=== PATIENT | male | born 1975 | race Caucasian/White ===

== ENCOUNTER 2016-10-11 15:47 | Emergency (ER) | payer OTHER ==
[2016-10-11] MEDS ORDERED: IBUPROFEN 600 MG TABLET (FP) PO ONE ×2 (16:04→16:16)
[2016-10-11 16:17] VITALS: TEMP 98.1; BMI 34.9
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
[2016-10-11 16:44] VITALS: BP 123/70; PULSE 76
== END 2016-10-11 16:44 | disposition home or self-care (01) ==
LOC: JER 15:47
DX: S29.012A Strain of muscle and tendon of back wall of thorax, initial encounter (principal); X50.0XXA Overexertion from strenuous movement or load, initial encounter; X50.9XXA Other and unspecified overexertion or strenuous movements or postures, initial encounter; Y93.89 Activity, other specified; Y92.61 Building [any] under construction as the place of occurrence of the external cause; Y99.0 Civilian activity done for income or pay
CPT/HCPCS: 99282-25

== ENCOUNTER 2018-04-29 11:24 | Emergency (ER) | payer OTHER ==
[2018-04-29 11:40] VITALS: BP 127/74; PULSE 68; TEMP 98.1; BMI 32.5
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
[2018-04-29] MEDS ORDERED: IBUPROFEN 400 MG TABLET (FP) PO ONE ×2 (12:55→12:56)
== END 2018-04-29 13:02 | disposition home or self-care (01) ==
LOC: JERFT 11:24
DX: S46.912A Strain of unspecified muscle, fascia and tendon at shoulder and upper arm level, left arm, initial encounter (principal); M54.9 Dorsalgia, unspecified; X58.XXXA Exposure to other specified factors, initial encounter; Y93.89 Activity, other specified; Y92.89 Other specified places as the place of occurrence of the external cause; Y99.0 Civilian activity done for income or pay
CPT/HCPCS: 99281-25

== ENCOUNTER 2018-07-30 06:22 | Day surgery (SDC) | payer BC, OTHER ==
[2018-07-29 15:17] VITALS: BMI 33.1
--- NOTE | 2018-07-29 18:52 | PREOP ---
DATE OF ADMISSION: 07/30/2018 ADMISSION DIAGNOSIS: Nasal septal deviation, inferior turbinate hypertrophy, chronic pansinusitis. HISTORY OF PRESENT ILLNESS: This 43-year-old male has had longstanding nasal and sinus symptoms. He has had significant symptoms of obstruction, thick nasal drainage both anterior and posterior as well as purulent, history of sinus infections and sinus pressure. There is also a reduced sense of smell. He has had his obstructive symptoms for many years. He also has nasal allergies. He has been treated with antibiotics as well as sprays without improvement. He has been found to have significant nasal polyps particularly on the left side and chronic sinusitis found on his CT scan. He is now admitted for endoscopic sinus surgery to address ethmoid, maxillary, sphenoid, and frontal sinuses as well as address deviation of the nasal septum and inferior turbinate hypertrophy. ALLERGIES: No allergies to medications. PRESENT MEDICATIONS: Include fluticasone nasal spray. SOCIAL HISTORY: The patient does not smoke. PAST SURGICAL HISTORY: He has had in the past arthroscopic nasal surgery and ACL reconstruction. PAST MEDICAL HISTORY: He has undergone general anesthesia without report of problems. Bleeding history is negative. FAMILY HISTORY: Family history is negative for bleeding or anesthesia problems. PHYSICAL EXAMINATION: General: The patient is a well-developed male in no acute distress. HEENT: Head is normal. Eyes are clear. Ears are unremarkable. The nose has deviation of the septum as well as turbinate hypertrophy. Significant nasal polyposis is seen on the left side. The remainder of his head and neck examination is unremarkable. DATA: Preoperative labs are pending. CT scan of the paranasal sinuses performed at [facility] on June 06, 2018 does show chronic pansinusitis. The maxillary sinuses have prominent mucosal thickening and inflammatory debris right greater than left. There is opacification of the right ostial meatal unit. Ethmoid sinuses have mucosal thickening and inflammatory debris right greater than left. The sphenoid sinuses have mucosal thickening and a possible small retention cyst. Sphenoid ethmoid recesses are opacified by mucosal thickening bilaterally. Frontal sinuses show mild polypoid mucosal thickened on the floor of both sinuses. There is prominent leftward deviation of the nasal septum, which narrows the left nasal cavity. There is also evidence of left nasal polyposis. IMPRESSION: 1. Chronic pansinusitis. 2. Nasal septal deviation with obstruction. 3. Inferior turbinate hypertrophy. 4. Left nasal polyps. PLAN: Endoscopic sinus surgery, nasal septoplasty, possible turbinate surgery with image guidance. Informed consent: The patient understands the indications, alternatives, nature, risks, and benefits of proposed surgery, potential complications including, but not limited to, anesthesia, bleeding, infection, recurrence, hole in the septum, change in the sense of smell, numbness, eye injury or brain injury were discussed in detail. He understands and accepts these risks and wish to proceed with surgery. Questions are answered fully. RACHAEL FLOYD M.D. [id number]
[2018-07-30] MEDS ORDERED: MIDAZOLAM HCL 2 MG/2 ML SINGLE DOSE VIAL ONE (07:32)
[2018-07-30] MEDS ORDERED: LIDOCAINE HCL 1%, 10 MG/ML (20ML VIAL) ONE (07:47)
--- NOTE | 2018-07-30 08:00 | HP ---
History & Physical Update - History History: No Change - Physical Physical: No Change - Assessment Assessment: No Change - Plan Plan: No Change
[2018-07-30] MEDS ORDERED: PROPOFOL 20 ML ONE ×4 (08:15)
[2018-07-30] MEDS ORDERED: SUCCINYLCHOLINE CHLORIDE 200 MG/10 ML VIAL ONE (08:16)
[2018-07-30] MEDS ORDERED: fentaNYL CITRATE 250 MCG/5 ML VIAL ONE (08:17)
[2018-07-30] MEDS ORDERED: COCAINE HCL 4% TOPICAL SOLUTION 4 ML BOTTLE TP ONE ×2 (08:21→08:41)
[2018-07-30] MEDS ORDERED: LIDOCAINE 1%-EPI 1:100,000 30 ML MDV IJ ONE (08:24)
[2018-07-30] MEDS ORDERED: LIDOCAINE 1%/EPI 1:100000 (20 ML MULTI DOSE VIAL) IJ ONE ×2 (08:40)
[2018-07-30] MEDS ORDERED: KETOROLAC TROMETHAMINE 30 MG/1 ML VIAL ONE (09:39)
[2018-07-30] MEDS ORDERED: DEXAMETHASONE SOD PHOSPHATE 4 MG/1 ML VIAL ONE (09:39)
[2018-07-30] MEDS ORDERED: BACITRACIN 15 GM TUBE TOPICAL OINTMENT ONE (10:02)
--- NOTE | 2018-07-30 10:30 | OP ---
Operative Note - Note: Operative Date: 07/30/18 ([id number]) Pre-Operative Diagnosis: chronic pansinusitis, left nasal polyps, deviated septum, inferior turbinate hypertrophy Operation: bilateral endoscopic: 1) ethmoidectomy, anterior and posterior, 2) maxillary antrostomy with removal of tissue, 3) frontal sinus exploration, 4) sphenoidotomy, nasal septoplasty, left inferior turbinate outfracture, right inferior turbinate submucus resection, lysis synechia right nasal cavity, image guidance Findings: chronic sinusitis, large left nasal polyps, obstruction of sinus outflow tracts , deviated septum to left bony and cartilaginous, inferior turbinate hypertrophy right greater than left, right inferior synechia (inferior turbinate to septum) Implants: none Post-Operative Diagnosis: Same as Pre-op Surgeon: Joe Pryor Anesthesiologist/CLINICAL UNIT EDUCATOR: Joe Lowery Anesthesia: General Specimens Removed: left nasal polyp and ethmoid tissue, right ethmoid tissue, right inferior turbinate, nasal septal tissue Estimated Blood Loss (mls): 30 Drains & Tubes with Location: none Blood Volume Replaced (mls): 0 Operative Report Dictated: Yes
[2018-07-30] MEDS ORDERED: oxyCODONE HCL 5 MG TABLET PO PRN ×2 (10:31→10:38)
[2018-07-30] MEDS ORDERED: ACETAMINOPHEN 325 MG TABLET (FP) PO PRN (10:31)
[2018-07-30] MEDS ORDERED: ACETAMINOPHEN INJECTION 100 ML IVPB ONE (10:35)
[2018-07-30] MEDS ORDERED: PROMETHAZINE HCL 25 MG/1 ML VIAL IVPUSH PRN (10:38)
[2018-07-30] MEDS ORDERED: ONDANSETRON 4 MG/2 ML VIAL IVPUSH PRN (10:38)
[2018-07-30] MEDS ORDERED: ACETAMINOPHEN 1000 MG/100 ML VIAL (NON FORMULARY) IVPB ONE (10:38)
[2018-07-30] MEDS ORDERED: LACTATED RINGERS SOLUTION 1,000 ML IV SCH (10:45)
[2018-07-30 17:50] VITALS: TEMP 97.2
[2018-07-30 17:58] VITALS: BP 128/53; PULSE 60
--- NOTE | 2018-07-31 15:22 | OP ---
DATE OF OPERATION: 07/30/2018 PREOPERATIVE DIAGNOSES: Chronic pansinusitis, left nasal polyp with obstruction, nasal septal deviation, inferior turbinate hypertrophy. POSTOPERATIVE DIAGNOSES: Chronic pansinusitis, left nasal polyp with obstruction, nasal septal deviation, inferior turbinate hypertrophy. PROCEDURE: Bilateral endoscopic ethmoidectomy, anterior and posterior, bilateral endoscopic maxillary antrostomy with removal of tissue, bilateral endoscopic frontal sinus exploration, bilateral endoscopic sphenoidotomy, nasal septoplasty, left inferior turbinate outfracture, submucous resection of right inferior turbinate, lysis of synechia, right nasal cavity, endoscopic and image guidance. SURGEON: Rachael Pryor MD ANESTHESIOLOGIST: Rachael Lowery MD ANESTHESIA: General via endotracheal tube. INDICATIONS: This 43-year-old male has had significant nasal obstruction with poor sense of smell, facial pain and pressure and drainage. He has failed to improve with appropriate medical therapy. Examination demonstrates significant deviation of the septum to the left with obstruction, large left nasal polyp obstructing the left nasal cavity posteriorly and entering the nasopharynx as well as inferior turbinate hypertrophy. A CT scan demonstrates chronic pansinusitis and confirms deviation of the septum and the inferior turbinates and the obstruction with the nasal polyp. He is now brought to surgery for treatment. FINDINGS: Chronic pansinusitis, large left nasal polyp obstructing the left nasal cavity and posterior choana, bilateral inferior turbinate hypertrophy, synechia of inferior nasal cavity from the inferior turbinate to the nasal septum, moderate septal deviation to the left bony and cartilaginous with displaced maxillary crest to the right inferiorly contributing to the synechia. PROCEDURE: Patient was brought to the operating room and placed on the operating table in the supine position. General endotracheal anesthesia was induced to a satisfactory level. He was prepped and draped in the usual fashion for surgery. Lidocaine 1% with epinephrine 1:100,000 was infiltrated in the nasal septum. Cocaine 4% on pledgets was placed topically within the nasal cavities. The patient's CT scan data was loaded to the [employer] image-guidance system. The patient was registered and image guidance was used intermittently throughout the case in order to confirm anatomic location and guide dissection. The pledgets were removed and nasal endoscopy was performed. The nasal septum was intact but deviated primarily to the left side with moderate narrowing of the nasal cavity. There was also inferior turbinate hypertrophy. There was a very large nasal polyp posteriorly on the left which obstructed the posterior choana and the inferior meatus and sphenoethmoid recess. On the right side the nasopharynx was observed, but the polyp could be seen entering the left nasopharynx. There was also a dense synechia from the right inferior turbinate to the inferior nasal septum. Additional lidocaine with epinephrine was infiltrated into the middle turbinates and lateral nasal anglin. Nasal polyp was also infiltrated as well as the synechia. Additional cocaine was placed in the middle meati. The synechia was cauterized and then divided endoscopically. Next, the left nasal polyps were grasped with forceps and removed in several pieces. The largest was approximately 2 cm in diameter. This restored the nasal airway. The left paranasal sinus was first addressed. The middle turbinate was slightly medialized. The ball-tipped seeker was used to remove the uncinate process and the uncinate process was removed. An accessory ostium was also identified. Anterior and then posterior ethmoidectomy was performed with the ethmoid forceps and Xomed microdebrider with guidance. Anterior and then posterior ethmoidectomy was performed. The lamina papyracea and the fovea ethmoidalis were preserved. Next, the sphenoid was explored and the sphenoethmoid recess opened. Sphenoidotomy was enlarged. Next, the middle meatal antrostomy was created and tissue was removed to ensure adequate drainage. Finally the 70-degree scope was used to explore the frontal recess. Giraffe forceps were used to remove obstructing tissue. The frontal ostium was identified and location confirmed with guidance. Attention was then turned to the right paranasal sinuses. The middle turbinate was slightly medialized. The uncinate process was drawn forward with a ball-tipped seeker and then removed. Anterior and then posterior ethmoidectomy was performed with the ethmoid forceps and the Xomed microdebrider with guidance. Again the lamina papyracea and the fovea ethmoidalis were preserved. Sphenoidotomy was created and the sinus appeared without lesion. Next, the right maxillary sinus was entered by creating middle meatal antrostomy, enlarging the natural ostium. Next, the right frontal recess was explored using the 70-degree scope and giraffe forceps and curved suction. The frontal ostium was identified and again confirmed with guidance. Finally, attention was turned toward the nasal airway. The nasal septum had deviation to the left including a caudal deviation. A right nasal septal incision was created. Mucoperichondrial flap was elevated and the bony/cartilaginous junction was then identified and and bilateral mucoperiosteal flaps were elevated. Obstructing and deviated bony septum was then removed with the Allan-Kenia instrument. Inferior strip of cartilage excised with the cartilage knife and the [place] elevator. A portion of the maxillary crest was deviated to the right and this was fractured to a more midline position. Scoring incisions were created to break the bend. Caudal and dorsal struts were preserved. After these maneuvers significant improvement in the nasal airway was obtained. The incision was closed with 4-0 chromic. Finally the inferior turbinates were addressed. The right middle turbinate was enlarged and infiltrated with lidocaine and epinephrine. Submucous resection was performed. Submucosal cauterization was performed and incision was closed with 4-0 chromic. Finally the left inferior turbinate was outfractured and excellent airway resulted. Final examination demonstrated open sinuses and excellent hemostasis. NasoPore dressings were placed in each ethmoid sinus. Folded Telfa gauze coated with antibiotic ointment and joined anteriorly with a silk suture were placed within each nasal cavity. Patient tolerated the procedure well. He was then awakened from general anesthesia and transferred to the PACU in stable condition. Estimated blood loss was less than 30 mL. He received crystalloid during the procedure. Specimens sent to Pathology included left nasal polyp and ethmoid tissue, right ethmoid tissue, nasal septal tissue and right inferior turbinate tissue. There were no complications. RACHAEL PRYOR M.D. [id number]
--- NOTE | 2018-08-01 16:19 | PATH ---
Surgical Pathology Report Patient Name: SARABJIT GONZALEZ [facility]. Rec. #: [id number] /Age/Gender: 1975 (Age: 43) / M Account: [id number] Location: [facility] SURGICAL Taken: 07/30/2018 Received: 07/30/2018 Reported: 08/01/2018 Physicians: Joe Pryor M.D. Specimen(s) Received A: LEFT NASAL POLYP AND ETHMOID TISSUE B: RIGHT ETHMOID TISSUE C: RIGHT INFERIOR TURBINATE TISSUE D: SEPTUM Clinical History Nasal polyp, deviated septum Final Diagnosis A. LEFT NASAL POLYP AND ETHMOID TISSUE, EXCISION: SINONASAL INVERTED PAPILLOMA. CHRONIC SINUSITIS. B. RIGHT ETHMOID TISSUE, EXCISION: BONE AND SINONASAL MUCOSA WITH CHRONIC SINUSITIS. C. RIGHT INFERIOR TURBINATE, EXCISION: SINONASAL MUCOSA WITH CHRONIC SINUSITIS. D. SEPTUM, EXCISION: CARTILAGE AND BONE, CONSISTENT WITH SEPTUM. Electronically Signed Karina Kim M.D. Gross Description A. Received in formalin labeled "left nasal polyp and ethmoid tissue," is a 4.3 x 2.6 x 0.3 cm aggregate of chen, irregular to polypoid portion of soft tissue as well as fragments of cartilage. Lsat Instructor sections are submitted in 3 cassettes as follows: 1-2-polyps; 2-fragments of cartilage, following decalcification. B. Received in formalin labeled "right ethmoid tissue," is a 1.8 x 1.4 x 0.3 cm aggregate of chen fragments of cartilage and soft tissue. The specimen is submitted in toto in one cassette, following decalcification. C. Received in formalin labeled "right inferior turbinate," is a 1.3 x 0.7 x 0.3 cm chen portion of soft tissue. The specimen is submitted in toto in one cassette. D. Received in formalin labeled "septum," is a 2.3 x 1.9 x 0.2 cm aggregate of chen portions of cartilage and possible bone. The specimen is submitted in toto in one cassette, following decalcification. 07/31/2018 saudi07/31/2018
== END 2018-07-30 14:55 | disposition home or self-care (01) ==
LOC: JASU-SURG 06:22
PROVIDERS: ATTEND Otolaryngology
PROC: 09TV8ZZ Resection of Left Ethmoid Sinus, Via Natural or Artificial Opening Endoscopic (ICD-10-PCS; 2018-07-30)
PROC: 09TU8ZZ Resection of Right Ethmoid Sinus, Via Natural or Artificial Opening Endoscopic (ICD-10-PCS; 2018-07-30)
PROC: 8E09XBG Computer Assisted Procedure of Head and Neck Region, With Computerized Tomography (ICD-10-PCS; 2018-07-30)
PROC: 09TL8ZZ Resection of Nasal Turbinate, Via Natural or Artificial Opening Endoscopic (ICD-10-PCS; 2018-07-30)
PROC: 8E09XBZ Computer Assisted Procedure of Head and Neck Region (ICD-10-PCS; principal; 2018-07-30 08:00)
DX: J32.4 Chronic pansinusitis (principal); J33.9 Nasal polyp, unspecified; J34.2 Deviated nasal septum; J34.3 Hypertrophy of nasal turbinates
CPT/HCPCS: 88304-TC; 88311-TC; 94760; J0131

== ENCOUNTER 2018-11-12 22:57 | Emergency (ER) | payer OTHER, BC ==
[2018-11-12 23:33] VITALS: BP 105/63; PULSE 68; TEMP 98.5; BMI 33.7
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
== END 2018-11-13 01:28 | disposition home or self-care (01) ==
LOC: JER 22:57
DX: S46.812A Strain of other muscles, fascia and tendons at shoulder and upper arm level, left arm, initial encounter (principal); M25.561 Pain in right knee; X00.8XXA Other exposure to uncontrolled fire in building or structure, initial encounter; W01.0XXA Fall on same level from slipping, tripping and stumbling without subsequent striking against object, initial encounter; Y93.89 Activity, other specified; Y92.018 Other place in single-family (private) house as the place of occurrence of the external cause; Y99.0 Civilian activity done for income or pay
CPT/HCPCS: 73030-TC-LT-FY; 73562-TC-RT-FY; 99282-25

== ENCOUNTER 2018-11-22 10:34 | Emergency (ER) | payer OTHER, BC ==
[2018-11-22 10:41] VITALS: BP 134/83; PULSE 72; TEMP 98.1; BMI 33.1
[2018-11-22] MEDS ORDERED: KETOROLAC TROMETHAMINE 60 MG/2 ML VIAL IM ONE (11:04)
--- NOTE | 2018-11-22 11:09 | PDOC ---
History of Present Illness - General Chief Complaint: Pain, Acute Stated Complaint: YFD Time Seen by Provider: 11/22/18 10:43 History Source: Patient Exam Limitations: No Limitations (R shoulder pain after heavy lifting at work today) - History of Present Illness Upper Extremity Pain Location: right: shoulder Past History - Travel Traveled outside of the country in the last 30 days: No Close contact w/someone who was outside of country & ill: No - Past Medical History Allergies/Adverse Reactions: Allergies Allergy/AdvReac Type Severity Reaction Status Date / Time No Known Allergies Allergy Verified 11/22/18 11:53 Home Medications: Ambulatory Orders Cyclobenzaprine HCl [Flexeril 10 mg] 10 mg PO BID 10 Days #20 tablet 11/22/18 Naproxen [EC-Naproxen] 500 mg PO BID 15 Days #30 tablet. 11/22/18 Anemia: No Asthma: No Cancer: No Cardiac Disorders: No CVA: No COPD: No CHF: No Dementia: No Diabetes: No GI Disorders: No Disorders: No HTN: No Hypercholesterolemia: No Liver Disease: No Seizures: No Thyroid Disease: No - Surgical History Orthopedic Surgery: Yes (acl right knee, rt knee arthroscopy x2) - Immunization History Immunization Up to Date: Yes - Suicide/Smoking/Psychosocial Hx Smoking Status: No Smoking History: Never smoked Have you smoked in the past 12 months: No Number of Cigarettes Smoked Daily: 0 Hx Alcohol Use: Yes (socially) Drug/Substance Use Hx: No Substance Use Type: Alcohol Hx Substance Use Treatment: No Review of Systems - Review of Systems Respiratory: No: Shortness of Breath Cardiac (ROS): No: Chest Pain Musculoskeletal: Yes: Joint Pain (R shoulder pain). No: Joint Swelling, Muscle Pain, Muscle Weakness Neurological: No: Numbness, Tingling, Tremors, Weakness *Physical Exam - Vital Signs Last Vital Signs Temp Pulse Resp BP Pulse Ox 98.1 F 72 18 134/83 99 11/22/18 10:39 11/22/18 10:39 11/22/18 10:39 11/22/18 10:39 11/22/18 10:39 - Physical Exam General Appearance: Yes: Nourished Respiratory/Chest: positive: Lungs Clear, Normal Breath Sounds Cardiovascular: positive: Regular Rhythm, Regular Rate, S1, S2 Extremity: positive: Normal Capillary Refill, Normal Inspection, Other (R shoulder: limited ROM due to pain, unable to fully extend arm about 110 degrees , no weakness. 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 II-XII NML intact, Fully Oriented, Alert, Normal Mood/ Affect, Normal Response, Motor Strength 5/ ED Treatment Course - RADIOLOGY Radiology Studies Ordered: Category Date Time Status SHOULDER-RIGHT [RAD] Stat Radiology 11/22/18 10:43 Completed Medical Decision Making - Medical Decision Making 11/22/18 11:08 43y/o M R hand dominant/w R shoulder pain X 2hrs [employer] + heavy lifting at work today xray no acute pathology pain control ortho referral 11/22/18 11:21 *DC/Admit/Observation/Transfer Diagnosis at time of Disposition: Right shoulder strain Qualifiers: Encounter type: initial encounter Qualified Code(s): S46.911A - Strain of unspecified muscle, fascia and tendon at shoulder and upper arm level, right arm , initial encounter - Discharge Dispostion Disposition: HOME Condition at time of disposition: Stable Decision to Admit order: No - Prescriptions Prescriptions: Cyclobenzaprine HCl [Flexeril 10 mg] 10 mg PO BID 10 Days #20 tablet Naproxen [EC-Naproxen] 500 mg PO BID 15 Days #30 tablet.dr - Referrals Referrals: Ryan Sanchez MD [Primary Care Provider] - Ryan Mesa MD [Staff Physician] - - Patient Instructions Additional Instructions: Your xray was negative for acute fracture or dislocation Please take Motrin for pain and muscle relaxation Follow up with orthopedic if pain in shoulder pain more than 2 weeks return to the ER if worsening symptoms occurs. - Post Discharge Activity
[2018-11-22] MEDS ORDERED: KETOROLAC TROMETHAMINE 60 MG/2 ML VIAL ONE (11:14)
== END 2018-11-22 12:05 | disposition home or self-care (01) ==
LOC: JERFT 10:34
PROC: 3E0233Z Introduction of Anti-inflammatory into Muscle, Percutaneous Approach (ICD-10-PCS; principal; 2018-11-22)
DX: S46.811A Strain of other muscles, fascia and tendons at shoulder and upper arm level, right arm, initial encounter (principal); X50.0XXA Overexertion from strenuous movement or load, initial encounter; Y93.89 Activity, other specified; Y92.89 Other specified places as the place of occurrence of the external cause; Y99.0 Civilian activity done for income or pay
CPT/HCPCS: 73030-TC-RT-FY; 99281-25

== ENCOUNTER 2024-06-05 19:12 | Emergency (ER) | payer OTHER ==
[2024-06-05 19:43] VITALS: BP 161/75; PULSE 77; RESP 18; TEMP 98; BMI 35.6
[2024-06-05] MEDS ORDERED: KETOROLAC TROMETHAMINE 15 MG/ML VIAL ONE (20:18)
[2024-06-05] MEDS ORDERED: LIDOCAINE 5% TOPICAL PATCH ONE (20:18)
[2024-06-05] MEDS: LIDOCAINE 5% TOPICAL PATCH TP ONE (21:15)
[2024-06-05] MEDS: KETOROLAC TROMETHAMINE 15 MG/ML VIAL IM ONE (21:16)
[2024-06-05] MEDS ORDERED: LIDOCAINE PATCH REMOVAL MC SCH (22:00)
== END 2024-06-05 21:15 | disposition home or self-care (01) ==
LOC: JER 19:12 → JERFT 19:12
PROC: 3E0133Z Introduction of Anti-inflammatory into Subcutaneous Tissue, Percutaneous Approach (ICD-10-PCS; principal; 2024-06-05)
DX: M25.561 Pain in right knee (principal); M79.10 Myalgia, unspecified site
CPT/HCPCS: 73562-TC-RT-FY; 99284-25